=== PATIENT | male | born 1950 | race Caucasian/White ===

== ENCOUNTER 2018-10-05 17:04 | Inpatient (IN) | payer OTHER, MEDICARE ==
[2018-10-05] MEDS ORDERED: NS 1,000 ML IV ONE (17:46)
[2018-10-05] MEDS ORDERED: ONDANSETRON 4 MG/2 ML VIAL IVP ONE (17:46)
[2018-10-05] MEDS ORDERED: ONDANSETRON 4 MG/2 ML VIAL ONE (17:46)
[2018-10-05 18:04] LABS: PLATELET COUNT 161 10^3/uL (150-400)
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
[2018-10-05] MEDS ORDERED: ACETAMINOPHEN 500 MG TAB PO ONE (18:37)
[2018-10-05] MEDS ORDERED: KETOROLAC 15 MG/1 ML SDV IVP ONE (19:25)
[2018-10-05] MEDS ORDERED: ONDANSETRON 4 MG/2 ML VIAL IVP PRN (21:07)
[2018-10-05] MEDS ORDERED: ACETAMINOPHEN 325 MG TAB PO PRN (21:07)
[2018-10-05] MEDS ORDERED: NS 1,000 ML IV SCH (21:15)
--- NOTE | 2018-10-05 22:10 | PDGENHP ---
History and Physical - Chief Complaint Fever, chills, diarrhea, vomiting - History of Present Illness French Escobar is a 67 yo M with a PMHx of DM who presents to [facility] for acute onset f/c, vomiting and diarrhea this afternoon. He is visiting his son here in [place] to help him recover from dental surgery. This afternoon at 3:00 PM he awoke from a nap feeling very cold and started to have nausea with episode of vomiting as well as diarrhea. He denies eating anything abnormal, although he did have a bagel for breakfast and felt fine afterward. He denies any blood in vomitus or stools. He has had a slight non-productive cough for past day but denies SOB or other URI symptoms. He denies any urinary symptoms as well as chest pain, edema, headache, syncope, abdominal pain. History Information - Allergies/Home Medication List Allergies/Adverse Reactions: No Known Allergies Allergy (Unverified 10/05/18 17:11) Home Medications: Aspirin EC [Aspirin EC 81 mg (*)] 81 mg PO HS 10/05/18 [Last Taken 10/04/18] Atenolol [Tenormin 25 mg (*)] 25 mg PO HS 10/05/18 [Last Taken 10/04/18] Atorvastatin Calcium [Lipitor 10 mg (*)] 10 mg PO HS 10/05/18 [Last Taken ] Fenofibrate [Tricor 145 mg (*)] 145 mg PO DAILY 10/05/18 [Last Taken 10/04/18] Herbals/Supplements -Info Only 1 ea PO DAILY 10/05/18 [Last Taken Unknown] Levothyroxine [Synthroid 88 mcg (*)] 88 mcg PO DAILY06 10/05/18 [Last Taken ] Losartan Potassium 100 mg PO DAILY 10/05/18 [Last Taken 10/04/18] Multivitamins [Multivitamin (*)] 1 each PO DAILY 10/05/18 [Last Taken 10/04/18] metFORMIN SR [Glucophage XR 500 mg (*)] 1,000 mg PO DAILY 10/05/18 [Last Taken 10/04/18] I have personally reviewed and updated: family history, medical history, social history, surgical history - Past Medical History diabetes type 2 - Surgical History Reports: no pertinent surgical hx - Social History Smoking Status: Never smoked Review of Systems Review of Systems: ROS: 10pt was reviewed & negative except for what was stated in HPI & below Physical Exam Physical Exam: Temp Pulse Resp BP Pulse Ox 36.9 C 95 17 114/57 L 93 10/05/18 21:48 10/05/18 21:48 10/05/18 21:48 10/05/18 21:48 10/05/18 21:48 Constitutional: no apparent distress Eyes: PERRL Ears, Nose, Mouth, Throat: moist mucous membranes Cardiovascular: regular rate and rhythym Respiratory: no respiratory distress, reduced air movement Gastrointestinal: normoactive bowel sounds Skin: warm Musculoskeletal: full muscle strength, no muscle tenderness Neurologic: AAOx3 Psychiatric: interacting appropriately Lab Data & Imaging Review 10/05/18 17:45 10/05/18 17:45 WBC 12.33 10^3/uL (3.80-9.50) H 10/05/18 17:45 RBC 4.37 10^6/uL (4.40-6.38) L 10/05/18 17:45 Hgb 12.9 g/dL (13.7-17.5) L 10/05/18 17:45 Hct 38.2 % (40.0-51.0) L 10/05/18 17:45 MCV 87.4 fL (81.5-99.8) 10/05/18 17:45 MCH 29.5 pg (27.9-34.1) 10/05/18 17:45 MCHC 33.8 g/dL (32.4-36.7) 10/05/18 17:45 RDW 14.0 % (11.5-15.2) 10/05/18 17:45 Plt Count 161 10^3/uL (150-400) 10/05/18 17:45 MPV 10.5 fL (8.7-11.7) 10/05/18 17:45 Neut % (Auto) 86.6 % (39.3-74.2) H 10/05/18 17:45 Lymph % (Auto) 5.2 % (15.0-45.0) L 10/05/18 17:45 Sharp % (Auto) 7.4 % (4.5-13.0) 10/05/18 17:45 Eos % (Auto) 0.0 % (0.6-7.6) L 10/05/18 17:45 Baso % (Auto) 0.2 % (0.3-1.7) L 10/05/18 17:45 Nucleat RBC Rel Count 0.0 % (0.0-0.2) 10/05/18 17:45 Absolute Neuts (auto) 10.69 10^3/uL (1.70-6.50) H 10/05/18 17:45 Absolute Lymphs (auto) 0.64 10^3/uL (1.00-3.00) L 10/05/18 17:45 Absolute Monos (auto) 0.91 10^3/uL (0.30-0.80) H 10/05/18 17:45 Absolute Eos (auto) 0.00 10^3/uL (0.03-0.40) L 10/05/18 17:45 Absolute Basos (auto) 0.02 10^3/uL (0.02-0.10) 10/05/18 17:45 Absolute Nucleated RBC 0.00 10^3/uL (0-0.01) 10/05/18 17:45 Immature Gran % 0.6 % (0.0-1.1) 10/05/18 17:45 Immature Gran # 0.07 10^3/uL (0.00-0.10) 10/05/18 17:45 VBG Lactic Acid 2.0 mmol/L (0.7-2.1) 10/05/18 18:40 Sodium 139 mEq/L (135-145) 10/05/18 17:45 Potassium 3.3 mEq/L (3.5-5.2) L 10/05/18 17:45 Chloride 109 mEq/L (97-110) 10/05/18 17:45 Carbon Dioxide 21 mEq/l (22-31) L 10/05/18 17:45 Anion Gap 9 mEq/L (6-14) 10/05/18 17:45 BUN 24 mg/dL (7-23) H 10/05/18 17:45 Creatinine 1.3 mg/dL (0.7-1.3) 10/05/18 17:45 Estimated GFR 55 10/05/18 17:45 Glucose 207 mg/dL (70-100) H 10/05/18 17:45 Calcium 9.5 mg/dL (8.5-10.4) 10/05/18 17:45 Total Bilirubin 0.7 mg/dL (0.1-1.4) 10/05/18 17:45 Conjugated Bilirubin 0.5 mg/dL (0.0-0.5) 10/05/18 17:45 Unconjugated Bilirubin 0.2 mg/dL (0.0-1.1) 10/05/18 17:45 AST 20 IU/L (17-59) 10/05/18 17:45 ALT 27 IU/L (21-72) 10/05/18 17:45 Alkaline Phosphatase 73 IU/L (38-126) 10/05/18 17:45 Total Protein 6.7 g/dL (6.3-8.2) 10/05/18 17:45 Albumin 4.0 g/dL (3.5-5.0) 10/05/18 17:45 Lipase 119 IU/L (23-300) 10/05/18 17:45 Procalcitonin 1.79 ng/mL (0.02-0.10) H 10/05/18 17:45 Urine Color YELLOW 10/05/18 19:10 Urine Appearance CLEAR 10/05/18 19:10 Urine pH 5.0 (5.0-7.5) 10/05/18 19:10 Ur Specific [place] 1.013 (1.002-1.030) 10/05/18 19:10 Urine Protein NEGATIVE (NEGATIVE) 10/05/18 19:10 Urine Ketones NEGATIVE (NEGATIVE) 10/05/18 19:10 Urine Blood NEGATIVE (NEGATIVE) 10/05/18 19:10 Urine Nitrate NEGATIVE (NEGATIVE) 10/05/18 19:10 Urine Bilirubin NEGATIVE (NEGATIVE) 10/05/18 19:10 Urine Urobilinogen NEGATIVE EU (0.2-1.0) 10/05/18 19:10 Ur Leukocyte Esterase NEGATIVE (NEGATIVE) 10/05/18 19:10 Urine RBC 1-3 /hpf (0-3) 10/05/18 19:10 Urine WBC 1-3 /hpf (0-3) 10/05/18 19:10 Ur Epithelial Cells TRACE /lpf (NONE-1+) 02/19/19 19:10 Urine Bacteria TRACE /hpf (NONE SEEN) H 10/05/18 19:10 Hyaline Casts 1-5 /lpf (0-1) 10/05/18 19:10 Urine Mucus TRACE /lpf (NONE-1+) 10/05/18 19:10 Urine Glucose 1+ (NEGATIVE) H 10/05/18 19:10 Nasal Influenza A PCR NEGATIVE FOR FLU A (NEGATIVE) 10/05/18 19:16 Nasal Influenza B PCR NEGATIVE FOR FLU B (NEGATIVE) 10/05/18 19:16 Assessment & Plan Assessment: Sepsis - Admitted with fever 38.9, mild tachycardia 100's - Source GI vs. PNA - LA 2.2 initially, improved to 2.0 after IVF - CXR on admission shows patchy airspace opacities b/l, concerning for viral - GI PCR pending - Respiratory PCR pending - Will start Levaquin empirically given elevated Procalcitonin - Blood cultures x2 collected Diarrhea (Acute) - Acute onset, with vomiting as well - Likely food poisoning/gastroenteritis - GI PCR pending - Supportive care with IVF, anti-emetics PRN AMELIA - Cr 1.3 on admission, no baseline known - IVF as above - Repeat Cr in the AM - Continue to monitor I/O, avoid nephrotoxic agents DM - Holding home Metformin - SSI ordered FEN: IVF, Regular Code: FULL DVT PPx: Heparin Dispo: Admit to Observation
[2018-10-05] MEDS: HEPARIN 5,000 UNIT/0.5 ML INJ SC SCH (22:54)
[2018-10-06] MEDS: MELATONIN 3 MG TAB PO SCH ×2 (00:27→21:39)
[2018-10-06 06:08] LABS: PLATELET COUNT 145 10^3/uL (150-400)
[2018-10-06] MEDS: HEPARIN 5,000 UNIT/0.5 ML INJ SC SCH ×3 (06:36→21:39)
[2018-10-06] MEDS: ONDANSETRON DISINTEGRATING 4 MG TAB PO PRN (09:00)
[2018-10-06] MEDS ORDERED: NS 1,000 ML IV ONE (09:15)
--- NOTE | 2018-10-06 09:28 | HOSPPROG ---
Hospitalist Progress Note Assessment/Plan: DIAGNOSES: * Acute sepsis with bacteremia * Acute she gallop enteritis and presumably Shigella bacteremia (gram-negative rods and blood) * Acute renal failure - suspect this is likely hydration issue however concern for hemolytic uremic syndrome * Acute anemia and thrombocytopenia developing due to above, again seems unlikely but have some concern for hemolytic uremic syndrome * Giardia and stool of uncertain significance * With to likely Shigella bacteremia would want to review HIV risks, son currently in room so have not yet asked PLANS: * Aggressive IV hydration * Change antibiotics to IV Rocephin * I have asked Dr. Seven Mix to see the patient * Follow renal function and cell counts very closely * From moment will give oral Flagyl to cover giardia in case this may be contributing any way to his symptoms * Renal diet * Follow electrolytes closely I reviewed all the above in detail with the patient this morning. I reviewed with Dr. Seven Mix who will be seeing the patient SUBJECTIVE: Still feels quite ill this morning Having a lot of diarrhea Very weak No abdominal pain or bleeding OBJECTIVE Vitals reviewed: Some low blood pressures overnight, pulse a bit better afebrile this morning Exam: alert oriented skin warm dry color ok resps not labored lungs clear BSs heart regular abd soft nondistended nontender, bowel sounds present limbs warm, no edema iv site ok Lab data: Creatinine increased to 2.3 this morning with mild increase in BUN at 33 Procalcitonin 1.8 Potassium better CO2 a bit lower at 20 anion gap still in normal range but increasing White blood cell count improved, however hemoglobin has dropped appoint half this morning and platelets have dropped to slightly low at 145 Objective: Vital Signs Temp Pulse Resp BP Pulse Ox 37.0 C 74 16 117/63 96 10/06/18 07:52 10/06/18 07:52 10/06/18 07:52 10/06/18 07:52 10/06/18 07:52 Microbiology 10/06/18 00:25 Respiratory Panel (PCR) - Final Nasal, Sinus - Swab No Organism Detected By Pcr Laboratory Results 10/06/18 05:17 10/06/18 05:17 10/05/18 10/06/18 10/07/18 06:59 06:59 06:59 Intake Total 1077 Balance 1077 - Time Spent With Patient Time Spent with Patient: greater than 35 minutes Time Spent with Patient: Greater than 35 minutes spent on this patients care, greater than 50% of time spent counseling, educating, and coordinating care regarding the above mentioned plan. ICD10 Worksheet Patient Problems: Problems Problem Status Onset Diarrhea Acute Fever Acute
[2018-10-06] MEDS ORDERED: PNEUMOC 13-VAL CONJ-DIP CRM/PF 0.5 ML SYR (PREVNAR 13) IM ONE (09:57)
[2018-10-06] MEDS ORDERED: metroNIDAZOLE 250 MG TAB PO SCH ×2 (10:00→12:00)
[2018-10-06] MEDS: NS 1,000 ML IV SCH ×3 (12:26→21:42)
--- NOTE | 2018-10-06 14:51 | ASMTCMCOM ---
CM Note CM Note Notes: 10/06/2018 Case Management Note Discussed with this morning. Pt admitted for fever and diarrhea. Pt is positive for giardia. Awaiting infectious disease consult to determine if there will be discharge antibiotic needs. PT cleared pt for independent discharge. Case Management d/c poc: to be determined. Case Management to follow. Date Signed: 10/06/2018 02:51 PM Electronically Signed By:Janice Cortes RN
[2018-10-06] MEDS ORDERED: TINIDAZOLE 500 MG TAB PO ONE (18:00)
[2018-10-06] MEDS ORDERED: IPRATROPIUM/ALBUTEROL 3 ML DEYVIAL IH PRN (18:56)
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
[2018-10-06] MEDS: ASPIRIN EC 81 MG TAB PO SCH (21:38)
[2018-10-06] MEDS: ATENOLOL 25 MG TAB PO SCH (21:38)
[2018-10-06] MEDS: ATORVASTATIN CALCIUM 10 MG TAB PO SCH (21:40)
[2018-10-06] MEDS: diphenhydrAMINE 25 MG CAP PO PRN (21:40)
[2018-10-07] MEDS: LEVOTHYROXINE 88 MCG TAB PO SCH (06:01)
[2018-10-07] MEDS: HEPARIN 5,000 UNIT/0.5 ML INJ SC SCH ×3 (06:01→20:13)
[2018-10-07] MEDS: ONDANSETRON DISINTEGRATING 4 MG TAB PO PRN (06:04)
[2018-10-07 06:51] LABS: HIV TYPE 1 AND 2 NEGATIVE (NEGATIVE)
[2018-10-07] MEDS: LOSARTAN POTASSIUM 50 MG TAB PO SCH (08:28)
[2018-10-07] MEDS: FENOFIBRATE 145 MG TAB PO SCH (08:28)
--- NOTE | 2018-10-07 09:42 | HOSPPROG ---
Hospitalist Progress Note Assessment/Plan: 67 yoM w h/o colostomy and subsequent reversal here w severe sepsis, bacteremia Acute sepsis with bacteremia gi source on ceftriaxone Acute Shigella enteritis as above ?TTP/HUS: unlikely but AMELIA, thrombocytopenia noted repeat labs today AMELIA: se above likely prerenal ? giardia: agree w empiric treatment dispo: inpt Subjective: case d/w dr godfrey. afebrile. more alert Objective: Vital Signs Temp Pulse Resp BP Pulse Ox 36.5 C 69 20 159/92 H 95 10/07/18 07:50 10/07/18 07:50 10/07/18 07:50 10/07/18 07:50 10/07/18 07:50 Microbiology 10/05/18 22:20 Gastrointestinal Tract Panel (PCR) - Final Stool Shigella Species Presumptive Giardia Lamblia 10/06/18 00:25 Respiratory Panel (PCR) - Final Nasal, Sinus - Swab No Organism Detected By Pcr Laboratory Results 10/06/18 05:17 10/06/18 05:17 10/06/18 10/07/18 10/08/18 05:59 05:59 05:59 Intake Total 500 1577 Balance 500 1577 - Physical Exam Constitutional: no apparent distress, appears nourished Eyes: PERRL, anicteric sclera Ears, Nose, Mouth, Throat: moist mucous membranes, hearing normal Cardiovascular: regular rate and rhythym, no murmur, rub, or gallop Respiratory: no respiratory distress, no rales or rhonchi Gastrointestinal: normoactive bowel sounds, No guarding, No rebound Genitourinary: no bladder fullness, No polanco in urethra Skin: warm, normal color Musculoskeletal: full muscle strength Neurologic: AAOx3 ICD10 Worksheet Patient Problems: Problems Problem Status Onset Diarrhea Acute Fever Acute
[2018-10-07 10:19] LABS: PLATELET COUNT 150 10^3/uL (150-400)
--- NOTE | 2018-10-07 11:09 | PCMIDPN ---
Assessment/Plan: Assessment: 67-year-old man with E coli bacteremia likely a consequence of bowel translocation secondary to diarrhea. To potential pathogens identified on stool PCR panel, both of which could result in the degree of diarrhea that initially brought him to the hospital. He has shown recovery from a laboratory perspective with a decrease in his white blood cell count, improvement in his platelet count, improvement in acute kidney injury, but he does have ongoing watery diarrhea that may limit his ability to complete therapy with an oral agent if susceptibility results reveal an active agent. 1. Severe sepsis secondary to E coli bloodstream infection, severe sepsis improved 2. Probable acute infectious diarrhea due to Shigella species, stable 3. Possible Giardia infection 4. Acute kidney injury, improved but not resolved 5. Transaminase elevation, likely secondary to severe sepsis 6. Thrombocytopenia, acute, improving Plan: 1. Continue ceftriaxone 2 g IV daily 2. Reviewed in detail potential side effects of beta-lactam antibiotics to include: allergy, rash, nausea, antibiotic-associated diarrhea, Clostridioides difficile colitis. 3. We will update treatment plan with susceptibilities returned from the bloodstream organism, currently the degree of diarrhea would limit our ability to complete treatment with an oral agent Epi Iglesias MD Infectious Diseases 10/07/18 11:13 Subjective: No fever or chills. Denies rash. Appetite poor but improving. Continues to have frequent watery diarrhea without abdominal pain. No nausea but has a general queasy feeling in his stomach. No new concerns today. Objective: Vital Signs Temp Pulse Resp BP Pulse Ox 36.5 C 70 14 159/92 H 94 10/07/18 07:50 10/07/18 11:05 10/07/18 11:05 10/07/18 07:50 10/07/18 11:05 Microbiology 10/05/18 22:20 Gastrointestinal Tract Panel (PCR) - Final Stool Shigella Species Presumptive Giardia Lamblia 10/06/18 00:25 Respiratory Panel (PCR) - Final Nasal, Sinus - Swab No Organism Detected By Pcr Laboratory Results 10/07/18 10:08 10/07/18 10:08 10/06/18 10/07/18 10/08/18 05:59 05:59 05:59 Intake Total 500 1577 Balance 500 1577 Laboratory Tests 10/05/18 10/05/18 10/06/18 17:45 17:45 05:17 WBC 12.33 H 8.96 Hgb 12.9 L 11.3 L Plt Count 161 145 L Absolute Seg Neuts 4.30 Absolute Band Neuts 2.51 H Absolute Lymphocytes 1.79 Creatinine 1.3 AST ALT 10/06/18 10/07/18 10/07/18 05:17 10:08 10:08 WBC 8.56 Hgb 11.6 L Plt Count 150 Absolute Seg Neuts 3.80 Absolute Band Neuts 2.51 H Absolute Lymphocytes 1.81 Creatinine 2.3 H 1.6 H AST 94 H ALT 111 H Medications Generic Name Dose Route Start Last Admin Trade Name Freq PRN Reason Stop Dose Admin Ceftriaxone Sodium 2 gm/ 50 mls @ 100 mls/hr 10/06/18 09:30 10/07/18 08:28 Sodium Chloride IV 11/05/18 09:29 50 mls DAILY [facility] Protocol Discontinued Medications Generic Name Dose Route Start Last Admin Trade Name Freq PRN Reason Stop Dose Admin Metronidazole 250 mg 10/06/18 10:00 10/06/18 10:43 Flagyl PO 11/05/18 09:59 250 mg Q8 [facility] Protocol Tinidazole 2,000 mg 10/06/18 18:00 10/06/18 17:31 Tindamax PO 10/06/18 18:01 2,000 mg ONCE ONE - Physical Exam General Appearance: no apparent distress, obese, non-toxic EENT: No scleral icterus Respiratory: lungs clear, normal breath sounds, No respiratory distress, No crackles, No wheezing Neck: full range of motion, supple Cardiac/Chest: regular rate, rhythm, No bradycardia, No tachycardia, No diastolic murmur, No systolic murmur Extremities: No erythema Skin: No erythema (Hypoactive bowel sounds, mild distention, no tenderness to palpation, no guarding, soft) Neuro/Psych: alert, oriented x 3, depressed affect, No confused - Time Spent With Patient Time Spent with Patient: greater than 35 minutes Time Spent with Patient: Greater than 35 minutes spent on this patients care, greater than 50% of time spent counseling, educating, and coordinating care regarding the above mentioned plan. ICD10 Worksheet Patient Problems: Problems Problem Status Onset Diarrhea Acute Fever Acute
--- NOTE | 2018-10-07 12:34 | PDMN ---
Medical Necessity Medical necessity: Change to IP, as of 10/07/18, per MD & MCG M-160; los >2 mn for ongoing management of severe sepsis secondary to E coli bacteremia w/ diarrhea r/t Shigella, possible Giardia, acute kidney injury & thrombocytopenia ; requiring further monitoring, repeat labs & IV abx; hx colostomy w/reversal
[2018-10-07] MEDS: NS 1,000 ML IV SCH ×2 (12:40→19:48)
[2018-10-07] MEDS: ATENOLOL 25 MG TAB PO SCH (20:10)
[2018-10-07] MEDS: ASPIRIN EC 81 MG TAB PO SCH (20:10)
[2018-10-07] MEDS: MELATONIN 3 MG TAB PO SCH (20:10)
[2018-10-07] MEDS: ATORVASTATIN CALCIUM 10 MG TAB PO SCH (20:10)
[2018-10-07] MEDS: diphenhydrAMINE 25 MG CAP PO PRN (21:21)
[2018-10-07] MEDS: hydrALAZINE 10 MG TAB PO PRN (22:35)
[2018-10-07] MEDS ORDERED: METOPROLOL TARTRATE 5 MG/5 ML INJ IVP ONE (23:42)
[2018-10-08] MEDS: NS 1,000 ML IV SCH (00:37)
[2018-10-08] MEDS ORDERED: diphenhydrAMINE 25 MG CAP PO ONE (00:43)
[2018-10-08] MEDS ORDERED: diphenhydrAMINE 25 MG CAP PO PRN (00:43)
[2018-10-08 05:27] LABS: PLATELET COUNT 183 10^3/uL (150-400)
[2018-10-08] MEDS: LOSARTAN POTASSIUM 50 MG TAB PO SCH (06:20)
[2018-10-08] MEDS: LEVOTHYROXINE 88 MCG TAB PO SCH (06:20)
[2018-10-08] MEDS: HEPARIN 5,000 UNIT/0.5 ML INJ SC SCH ×3 (06:21→20:53)
[2018-10-08] MEDS: FENOFIBRATE 145 MG TAB PO SCH (08:03)
[2018-10-08] MEDS: ERTAPENEM 1 GM in NS 100 ML IV SCH (09:21)
--- NOTE | 2018-10-08 10:41 | PCMIDPN ---
Assessment/Plan: Assessment: 67-year-old man with E coli bacteremia likely a consequence of bowel translocation secondary to diarrhea. Bloodstream E coli isolate now confirmed as ESBL producing organism. Less than ideal effective ceftriaxone this organism may explain why his symptoms have lingered. Change to ertapenem today from ceftriaxone and continue to evaluate. 1. Severe sepsis secondary to ESBL-producing E coli bloodstream infection, severe sepsis improved 2. Probable acute infectious diarrhea due to Shigella species with mild cecal colitis, stable 3. Possible Giardia infection; tinidazole treatment on 10/07 4. Acute kidney injury, resolved 5. Transaminase elevation, likely secondary to severe sepsis; stable 6. Thrombocytopenia, acute; resolved Plan: 1. Stop ceftriaxone 2 g IV daily 2. Start ertapenem 1gm daily 3. Reviewed in detail potential side effects of beta-lactam antibiotics to include: allergy, rash, nausea, antibiotic-associated diarrhea, Clostridioides difficile colitis. 4. Two sets of blood cultures Epi Iglesias MD Infectious Diseases 10/08/18 10:38 Subjective: No fevers or chills overnight. He does still have the general queasy feeling, which he cannot better explain it is not clearly nausea. Numerous high blood pressures with systolics in the 190s overnight without headaches or other different symptoms. He continues to have quite a lot of diarrhea, but no abdominal pain. Objective: Vital Signs Temp Pulse Resp BP Pulse Ox 36.4 C 69 16 190/102 H 92 10/08/18 07:37 10/08/18 07:37 10/08/18 07:37 10/08/18 07:37 10/08/18 07:37 Laboratory Results 10/08/18 04:50 10/08/18 04:50 10/07/18 10/08/18 10/09/18 05:59 05:59 05:59 Intake Total 1050 Balance 1050 - Physical Exam General Appearance: no apparent distress, obese, non-toxic EENT: No scleral icterus Respiratory: lungs clear, normal breath sounds, No respiratory distress, No accessory muscle use, No crackles, No wheezing Neck: full range of motion, supple Cardiac/Chest: regular rate, rhythm, No bradycardia, No tachycardia, No diastolic murmur, No systolic murmur Extremities: No erythema Abdomen: non-tender, soft, No distended, No guarding Skin: No erythema Neuro/Psych: alert, oriented x 3, depressed affect, No normal mood/affect - Time Spent With Patient Time Spent with Patient: greater than 35 minutes Time Spent with Patient: Greater than 35 minutes spent on this patients care, greater than 50% of time spent counseling, educating, and coordinating care regarding the above mentioned plan. ICD10 Worksheet Patient Problems: Problems Problem Status Onset Diarrhea Acute Fever Acute
--- NOTE | 2018-10-08 15:31 | ASMTCMCOM ---
CM Note CM Note Notes: 10/08/2018 Case Management Note PT cleared pt for independent discharge home. IV abx switched to ertapenem 1 gm daily. Discharge IV antibiotic needs are unclear at this time. Case Management d/c poc: to be determined. Case Management to follow. Date Signed: 10/08/2018 03:30 PM Electronically Signed By:Janice Cortes RN
--- NOTE | 2018-10-08 16:00 | HOSPPROG ---
Hospitalist Progress Note Assessment/Plan: 67 yoM w h/o colostomy and subsequent reversal here w severe sepsis, bacteremia Acute sepsis with bacteremia gi source ertapenem given esbl this keeshaley explains prolonged sx Acute Shigella enteritis as above ?TTP/HUS: unlikely but AMELIA, thrombocytopenia noted he does not have this AMELIA: se above likely prerenal ? giardia: agree w empiric treatment dispo: inpt Subjective: e coli w esbl. eating better Objective: Vital Signs Temp Pulse Resp BP Pulse Ox 36.9 C 72 15 179/93 H 93 10/08/18 11:34 10/08/18 12:50 10/08/18 12:50 10/08/18 11:34 10/08/18 12:50 Laboratory Results 10/08/18 04:50 10/08/18 04:50 10/07/18 10/08/18 10/09/18 05:59 05:59 05:59 Intake Total 1050 500 Balance 1050 500 - Physical Exam Constitutional: no apparent distress, appears nourished Eyes: PERRL, anicteric sclera Ears, Nose, Mouth, Throat: moist mucous membranes, hearing normal Cardiovascular: regular rate and rhythym, no murmur, rub, or gallop Respiratory: no respiratory distress, no rales or rhonchi Gastrointestinal: normoactive bowel sounds, soft, non-tender abdomen, No guarding, No rebound Genitourinary: no bladder fullness, No polanco in urethra Musculoskeletal: full muscle strength, no joint effusions Neurologic: AAOx3 ICD10 Worksheet Patient Problems: Problems Problem Status Onset Diarrhea Acute Fever Acute
[2018-10-08] MEDS: ASPIRIN EC 81 MG TAB PO SCH (20:53)
[2018-10-08] MEDS: ATENOLOL 25 MG TAB PO SCH (20:53)
[2018-10-08] MEDS: MELATONIN 3 MG TAB PO SCH (20:53)
[2018-10-08] MEDS: ATORVASTATIN CALCIUM 10 MG TAB PO SCH (20:53)
[2018-10-09] MEDS: HEPARIN 5,000 UNIT/0.5 ML INJ SC SCH ×2 (05:30→13:27)
[2018-10-09] MEDS: LEVOTHYROXINE 88 MCG TAB PO SCH (05:30)
[2018-10-09 05:51] LABS: PLATELET COUNT 180 10^3/uL (150-400)
[2018-10-09] MEDS: ERTAPENEM 1 GM in NS 100 ML IV SCH (09:01)
[2018-10-09] MEDS: FENOFIBRATE 145 MG TAB PO SCH (09:04)
[2018-10-09] MEDS: LOSARTAN POTASSIUM 50 MG TAB PO SCH (09:04)
[2018-10-09] MEDS: hydrALAZINE 10 MG TAB PO PRN ×3 (09:05→23:26)
--- NOTE | 2018-10-09 12:12 | HOSPPROG ---
Hospitalist Progress Note Assessment/Plan: 67yo M with M w h/o colostomy and subsequent reversal here w severe sepsis, bacteremia. # ESBL E coli bacteremia: Suspect gut translocation in setting of diarrheal illness - Continue ertapenem. ID following - Repeat blood cultures 10/08 ngtd # Severe sepsis: Physiology resolved. # Acute diarrhea due to Shigella: No BMs today # ? Giardia infection: - s/p tinidazole on 10/07 # AMELIA: Resolved. Prerenal. # Transaminitis: Due to sepsis. Improving. # Thrombocytopenia: Consumptive r/t sepsis/infection. Improved and stable. # HTN: BP elevated - continue losartan, increase atenolol VTE ppx: SQH Code: full Diet: regular Dispo: Remain inpatient for IV antibiotics Subjective: Feeling better, no new abdominal pain. Tolerating food. No stool since yesterday. Objective: Vital Signs Temp Pulse Resp BP Pulse Ox 37.0 C 62 16 176/89 H 92 10/09/18 11:21 10/09/18 11:21 10/09/18 11:21 10/09/18 11:21 10/09/18 11:21 Laboratory Results 10/09/18 04:44 10/09/18 04:44 10/08/18 10/09/18 10/10/18 05:59 05:59 05:59 Intake Total 1050 1100 Balance 1050 1100 - Physical Exam Constitutional: no apparent distress Eyes: PERRL, anicteric sclera Ears, Nose, Mouth, Throat: moist mucous membranes, hearing normal, ears appear normal, no oral mucosal ulcers Cardiovascular: regular rate and rhythym, no murmur, rub, or gallop, No edema Respiratory: no respiratory distress, no rales or rhonchi, clear to auscultation Gastrointestinal: normoactive bowel sounds, soft, non-tender abdomen, no palpable masses Genitourinary: no bladder fullness, no bladder tenderness, no renal bruits Skin: no rashes or abrasions, no fluctuance, no induration Musculoskeletal: full muscle strength, no muscle tenderness, normal joint ROM Neurologic: AAOx3, sensation intact bilaterally Psychiatric: interacting appropriately ICD10 Worksheet Patient Problems: Problems Problem Status Onset Diarrhea Acute Fever Acute
[2018-10-09] MEDS ORDERED: ATENOLOL 25 MG TAB PO SCH (14:05)
[2018-10-09] MEDS ORDERED: POTASSIUM CL 20 MEQ TAB PO ONE (14:09)
--- NOTE | 2018-10-09 14:51 | PCMIDPN ---
Assessment/Plan: #ESBL Ecoli bacteremia: likely translocation for bowel inflammation from shigella. Today is first day of improvement w decreased diarrhea, increased PO intake. WBC mildly elevated. LFTs gradually improving --starter on ertapenem yesterday --likely complete therapy on levofloxacin, possible DC tomorrow #Shigella gastroenteritis, diarrhea resolved: discussed w patient that [facility] may contact #Positive Giardia on PCR s/p tinidazole. Unclear significance med ertapenem 1gm IV daily #2 Microbiology 10/05/18 19:36 Blood Blood Panel (PCR) - Final Escherichia Coli 10/05/18 22:20 Stool Cx: Shigella Sonnei 10/05/18 19:36 Blood Cx (08/18) Escherichia Coli Esbl Subjective: feeling better no further diarrhea eating okay today no pain Objective: Vital Signs Temp Pulse Resp BP Pulse Ox 37.0 C 62 16 176/89 H 92 10/09/18 11:21 10/09/18 11:21 10/09/18 11:21 10/09/18 11:21 10/09/18 11:21 Laboratory Results 10/09/18 04:44 10/09/18 04:44 10/08/18 10/09/18 10/10/18 05:59 05:59 05:59 Intake Total 1050 1100 Balance 1050 1100 - Physical Exam General Appearance: alert, no apparent distress, obese EENT: pale conjunctiva, No thrush Respiratory: lungs clear, No accessory muscle use Neck: supple Cardiac/Chest: regular rate, rhythm Abdomen: soft, other (mild discomfort to deep palpation RLQ; hyperactive bowel sounds), No peritoneal signs Male Genitalia: No polanco Skin: pallor, No rash Neuro/Psych: alert, normal mood/affect, oriented x 3 - Time Spent With Patient Time Spent with Patient: greater than 35 minutes Time Spent with Patient: Greater than 35 minutes spent on this patients care, greater than 50% of time spent counseling, educating, and coordinating care regarding the above mentioned plan. ICD10 Worksheet Patient Problems: Problems Problem Status Onset Diarrhea Acute Fever Acute
[2018-10-09] MEDS: ASPIRIN EC 81 MG TAB PO SCH (21:43)
[2018-10-09] MEDS: MELATONIN 3 MG TAB PO SCH (21:43)
[2018-10-09] MEDS: ATORVASTATIN CALCIUM 10 MG TAB PO SCH (21:44)
[2018-10-10] MEDS: LEVOTHYROXINE 88 MCG TAB PO SCH (05:55)
[2018-10-10] MEDS: ERTAPENEM 1 GM in NS 100 ML IV SCH (08:58)
[2018-10-10] MEDS ORDERED: ENOXAPARIN 40 MG/0.4 ML SYR SC SCH (09:00)
[2018-10-10] MEDS: LOSARTAN POTASSIUM 50 MG TAB PO SCH (09:00)
[2018-10-10] MEDS: FENOFIBRATE 145 MG TAB PO SCH (09:00)
--- NOTE | 2018-10-10 09:58 | PCMIDPN ---
Assessment/Plan: #ESBL Ecoli bacteremia: likely translocation for bowel inflammation from shigella. Today is first day of improvement w decreased diarrhea, increased PO intake. WBC mildly elevated. LFTs gradually improving --discharge okay today --discharge on 7 more days of levofloxacin 750 mg daily, start 10/11/2018 as already received antibiotic dose today --Discussed possible side effects of Levaquin, including photosensitivity and interaction with cations including calcium, zinc and magnesium. Patient is also advised to take with small amount food to minimize risk of nausea and avoid significant sun exposure by wearing hat, sunscreen. Levaquin and other antibiotics in this class have been associated with VERY RARE but disabling and potentially irreversible serious adverse reactions that have occurred together, including tendinitis and tendon rupture, peripheral neuropathy, and confusion. Discontinue levofloxacin immediately if you develop a serious reaction and call our office. --recommended patient take a copy of records with him --needs note regarding her hospitalization for travel insurance #Shigella gastroenteritis, diarrhea resolved: discussed w patient that [facility] may contact #Positive Giardia on PCR s/p tinidazole. Unclear significance med ertapenem 1gm IV daily #3 Microbiology 10/05/18 19:36 Blood Blood Panel (PCR) - Final Escherichia Coli 10/05/18 22:20 Stool Cx: Shigella Sonnei 10/05/18 19:36 Blood Cx (08/18) Escherichia Coli Esbl Subjective: Patient is feeling well, 2 loose stools overnight. No abdominal pain, good appetite Objective: Vital Signs Temp Pulse Resp BP Pulse Ox 36.8 C 53 L 16 180/82 H 91 L 10/10/18 08:00 10/10/18 08:00 10/10/18 08:00 10/10/18 08:00 10/10/18 08:00 Laboratory Results 10/10/18 05:06 10/10/18 05:06 10/09/18 10/10/18 10/11/18 05:59 05:59 05:59 Intake Total 1100 400 Balance 1100 400 Afebrile General Appearance: alert, no apparent distress, obese EENT: pale conjunctiva, No thrush Respiratory: No accessory muscle use Abdomen: soft, no abdominal pain, mild distention, bowel sounds present Male Genitalia: No polanco Skin: pallor, No rash Neuro/Psych: alert, normal mood/affect, oriented x 3 - Time Spent With Patient Time Spent with Patient: greater than 35 minutes Time Spent with Patient: Greater than 35 minutes spent on this patients care, greater than 50% of time spent counseling, educating, and coordinating care regarding the above mentioned plan. ICD10 Worksheet Patient Problems: Problems Problem Status Onset Diarrhea Acute Fever Acute
[2018-10-10 12:21] VITALS: BP 169/79
--- NOTE | 2018-10-10 12:56 | PDDCSUM ---
Discharge Summary Discharge Summary: Date of Admission: 10/05/2018 Date of Discharge: 10/10/2018 Consultants: infectious disease Studies: abdominal CT Discharge Diagnoses: 1. ESBL E coli bacteremia 2. Shigella gastroenteritis 3. Severe sepsis 4. Positive Giardia on stool PCR of unclear significance 5. Acute kidney injury, resolved 6. Transaminitis 7. Thrombocytopenia 8. Hypertension Brief Hospital Course: 67yo M with M w h/o colostomy and subsequent reversal presented with acute onset diarrhea. He was found to be meeting sepsis criteria and was fluid resuscitated and started on antibiotics. GI PCR was positive or Shigella and Giardia. Blood cultures returned positive for ESBL E coli and he was transitioned to ertapenem. Infectious disease was consulted. We suspect that he developed bacteremia from gut translocation from bowel inflammation related to Shigella. His diarrhea improved and he was tolerating PO intake. His renal function and LFTs improved with fluids. His thrombocytopenia also resolved once his sepsis was under control. He was discharged to complete a course of levofloxacin. Of note, the Giardia in his stool is of unclear significance. He had no risk factors for getting this infection. Nonetheless, he received a dose of tinidazole for treatment. Medications: Please refer to EMR for complete list. I sent a prescription for levofloxacin to his pharmacy, otherwise no changes. Follow Up Plan: 1. PCP visit in 1-2 weeks 2. BP medication titration Physical Exam: Vitals reviewed, afebrile. Alert and oriented, rrr without m/r/g , lungs clear, abdomen soft and nontender, no leg edema, no rashes.
== END 2018-10-10 15:07 | disposition home or self-care (01) | DRG 872 ==
LOC: F3E 21:40 → OBSVTOIN 10-07 09:42
PROVIDERS: ADMIT Internal Medicine; ATTEND Internal Medicine
DX: A41.51 Sepsis due to Escherichia coli [E. coli] (principal); R78.81 Bacteremia; A08.39 Other viral enteritis; N17.9 Acute kidney failure, unspecified; E86.0 Dehydration; R65.20 Severe sepsis without septic shock; A03.8 Other shigellosis; I10 Essential (primary) hypertension; R74.0 Nonspecific elevation of levels of transaminase and lactic acid dehydrogenase [LDH]; D69.6 Thrombocytopenia, unspecified; E11.9 Type 2 diabetes mellitus without complications; Z23 Encounter for immunization; Z79.84 Long term (current) use of oral hypoglycemic drugs
CPT/HCPCS: 83010-90; 96374; 97116-GP; 97161-GP; G0009; G0378; J0696; J1335; J1644; J1650; J1885; J1956; J2405